=== PATIENT | female | born 1980 | race Caucasian/White ===

== ENCOUNTER 2017-06-18 10:18 | Emergency (ER) | payer OTHER, BC ==
[2017-06-18 12:02] LABS: BEDSIDE GLUCOSE 157 MG/DL (70-105)
[2017-06-18 12:29] LABS: BEDSIDE GLUCOSE 169 MG/DL (70-105)
== END 2017-06-18 12:10 | disposition home or self-care (01) ==
LOC: M ED 10:18
DX: Z04.1 Encounter for examination and observation following transport accident (principal); R55 Syncope and collapse; E10.649 Type 1 diabetes mellitus with hypoglycemia without coma; F17.210 Nicotine dependence, cigarettes, uncomplicated; Z79.899 Other long term (current) drug therapy
CPT/HCPCS: 99284

== ENCOUNTER 2019-07-20 16:54 | Emergency (ER) | payer OTHER ==
[~2019-07-20] VITALS: Ht 154.9 cm; Wt 86.4 kg
[~2019-07-20 16:54] MED LIST: ATOR40TA75; CLON0.5T2; INSUH10VL; INSUNSD; SUBO8MIS; TRAZ-252; VALA500T5; VENL75CA47; VENTAER
[2019-07-20 17:06] VITALS: BP 151/65
== END 2019-07-20 19:37 | disposition left against medical advice (07) ==
LOC: M ED 16:54
DX: E11.649 Type 2 diabetes mellitus with hypoglycemia without coma (principal); R55 Syncope and collapse; Z53.21 Procedure and treatment not carried out due to patient leaving prior to being seen by health care provider; I10 Essential (primary) hypertension; F17.200 Nicotine dependence, unspecified, uncomplicated; Z79.4 Long term (current) use of insulin; Z79.899 Other long term (current) drug therapy

== ENCOUNTER 2019-11-28 16:29 | Inpatient (IN) | payer OTHER ==
[~2019-11-28] VITALS: Ht 154.9 cm; Wt 78.9 kg
[~2019-11-28 16:29] MED LIST changes: -CLON0.5T2; +CLON0.5T2 PO; -INSUNSD; +INSUNSD SC; -SUBO8MIS; +SUBO8MIS SL; -VENTAER; +VENTAER PO
[2019-11-28] MEDS ORDERED: NALOXONE 2MG/2ML SYRINGE (J2310 PER 1MG) IM STA (16:39)
[2019-11-28] MEDS ORDERED: NS 1,000 ML IV ONE ×2 (16:45→22:30)
[2019-11-28] MEDS ORDERED: MIDAZOLAM 5MG/ML 1ML VIAL (J2250 PER 1MG) IM ONE ×2 (17:00→18:00)
[2019-11-28] MEDS ORDERED: HALOPERIDOL 5MG/ML VIAL (J1630 PER 1) IM ONE (17:15)
[2019-11-28] MEDS ORDERED: MIDAZOLAM INJ 2MG/2ML VIAL (J2250 PER 1MG) IV STA (17:33)
[2019-11-28] MEDS ORDERED: diazePAM 10MG/2ML SYRINGE (J3360 PER 5MG) IM ONE ×2 (18:00→18:15)
[2019-11-28 18:16] LABS: AMPHETAMINES LEVEL URINE NEGATIVE (NEGATIVE); BARBITURATES URINE NEGATIVE (NEGATIVE); BENZODIAZEPINES URINE NEGATIVE (NEGATIVE); CANNABINOIDS URINE NEGATIVE (NEGATIVE); COCAINE METABOLITE URINE NEGATIVE (NEGATIVE); METHADONE URINE NEGATIVE (NEGATIVE); OPIATES URINE NEGATIVE (NEGATIVE); PHENCYCLIDINE URINE NEGATIVE (NEGATIVE)
[2019-11-28 18:37] LABS: ACETAMINOPHEN LEVEL < 2.0 UG/ML (10.0-30.0); ETHYL ALCOHOL (ETHANOL) < 0.003 % (0.000-0.010); SALICYLATE LEVEL 3.7 MG/DL (5.0-30.0)
[2019-11-28] MEDS ORDERED: PROPOFOL 1,000 MG/100 ML VIAL As Ordered ONE (18:43)
[2019-11-28] MEDS ORDERED: propofoL 1,000 MG in IV 1 EA IV SCH (18:45)
[2019-11-28] MEDS ORDERED: ROCURONIUM BROMIDE 50 MG/5 ML VIAL IV STA (18:45)
[2019-11-28] MEDS ORDERED: ETOMIDATE INJ 20MG/10ML VIAL IV STA (18:45)
[2019-11-28 19:25] LABS: BASO # 0.1 10^3/uL (0.0-0.2); BASO % 0.4 % (0.0-1.0); HEMATOCRIT 46.2 % (36.0-47.0); HEMOGLOBIN 13.1 g/dl (12.0-15.5); LYMPH % 14.8 % (24.0-44.0); MEAN CORPUSCULAR HEMOGLOBIN 29.4 pg (27.0-33.0); MEAN CORPUSCULAR HGB CONC 28.4 g/dl (32.0-36.5); MEAN CORPUSCULAR VOLUME 103.6 fl (80.0-96.0); MONO # 2.3 10^3/uL (0.0-0.8); MONO % 6.9 % (0.0-5.0); NEUTROPHILS # 25.9 10^3/uL (1.5-8.5); NEUTROPHILS % 76.3 % (36.0-66.0); PLATELET COUNT, AUTOMATED 349 10^3/uL (150-450); RED BLOOD COUNT 4.46 10^6/uL (4.00-5.40)
[2019-11-28] MEDS ORDERED: SODIUM BICARBONATE 8.4% INJ 50 ML SYRINGE IV STA ×2 (19:25→22:05)
[2019-11-28] MEDS ORDERED: REFRIGERATOR IV KEYS XX PRN (19:30)
[2019-11-28] MEDS ORDERED: fentaNYL 100 MCG/2 ML INJECTION (J3010) IV PRN (19:30)
[2019-11-28] MEDS ORDERED: HumuLIN R (REGULAR) INSULIN (NovoLIN R) **100U/ML** PER UNIT IV SCH (19:45)
[2019-11-28] MEDS ORDERED: SODIUM CHLORIDE 0.9% 1000ML IV SCH (19:45)
[2019-11-28] MEDS: propofoL 1,000 MG in IV 1 EA IV SCH (19:50)
[2019-11-28] MEDS ORDERED: MIDAZOLAM HCL 100 MG in D5W 80 ML IV SCH (20:00)
[2019-11-28] MEDS ORDERED: PIPERACILLIN/TAZOBACTAM SOD 2.25 GM in D5W MINI-BAG PLUS 50 ML IV ONE (20:00)
--- NOTE | 2019-11-28 20:18 | REP ---
Clinical: Status post intubation. Comparison: 12/07/2006. Findings: Evaluation is limited by underpenetration and the exact position of the endotracheal tube in relation to the alta is difficult to evaluate although it appears to be approaching the right mainstem bronchus and follow up may be warranted. Nasogastric tube courses below left hemidiaphragm in satisfactory position. Left IJ line with tip in the SVC. Cardiac silhouette is normal. Lung south demonstrate coarsened parenchymal markings without focal consolidation, effusion, or pneumothorax. Skeletal structures are intact. Impression: 1. Poor evaluation of the endotracheal tube in relation to the alta due to positioning and underpenetration. Reevaluation may be warranted. 2. Coarsened parenchymal markings may reflect chronic reactive airway disease. No focal consolidation or effusion. Electronically Signed by Logan Francois MD 11/28/2019 08:09 P
--- NOTE | 2019-11-28 20:20 | REP ---
Clinical: Status post intubation. Comparison: 11/28/1927 07:07 p.m.. Findings: The endotracheal tube is identified at the alta and repositioning is suggested. Nasogastric tube in satisfactory position. Left IJ line with tip in the SVC. Cardiac silhouette is normal. Diffusely coarsened parenchymal markings suggests chronic reactive airway disease and possible early left lower lobe infiltrate. No effusion. No pneumothorax. Impression: 1. Endotracheal tube appears to approach the alta and may warrant reevaluation/repositioning. 2. Diffusely coarsened parenchymal markings suggest chronic reactive airway disease with possible early left lower lobe infiltrate. Electronically Signed by Logan Francois MD 11/28/2019 08:11 P
[2019-11-28] MEDS ORDERED: CLON0.5T2 PO (20:38)
[2019-11-28] MEDS ORDERED: TRAZ1TAB14 PO (20:38)
[2019-11-28] MEDS ORDERED: VENL150C43 PO (20:38)
[2019-11-28] MEDS ORDERED: INSUNSD SC (20:38)
[2019-11-28] MEDS ORDERED: ADME100I SC (20:38)
[2019-11-28] MEDS ORDERED: COMMENTS (20:39)
[2019-11-28] MEDS: CHLORHEXIDINE GLUCONATE 0.12 % 15ML UDC (PERIDEX ORAL RINSE) MT SCH (21:00)
[2019-11-28 21:03] LABS: TROPONIN I 0.04 NG/ML (< 0.10)
[2019-11-28] MEDS: NS 1,000 ML IV SCH (21:45)
--- NOTE | 2019-11-28 21:48 | RO ---
DATE OF PROCEDURE: 11/28/2019 INTERNAL JUGULAR CENTRAL LINE PROCEDURE NOTE INDICATION: Venous access. PREPROCEDURE DIAGNOSIS: Altered mental status and diabetic ketoacidosis (DKA). POSTPROCEDURE DIAGNOSIS: Altered mental status and diabetic ketoacidosis. PROCEDURE: Central Line Insertion and Intra-osseous line placement SURGEON/ATTENDING PHYSICIAN: Dr. Iwona Moran CONSENT: Due to the emergent nature of the procedure, the consent was implied. DESCRIPTION OF PROCEDURE: Multiple attempts at peripheral IV placement were made by ED nursing staff and physician which without success. The left tibial region was prepped in usual fashion and 1% lidocaine was administered for local anesthesia. The left tibial region was cannulated with 15 ga IO angiocath. There was bone marrow and blood aspirated after placement and line was flushed properly with placement of IO dressing after. Central line insertion practice form was completed by independent observed. Full sterile technique was maintained throughout the procedure, including surgical cap, mask, protective eyewear, full gown and sterile gloves. The patient was placed in Trendelenburg position. The left neck region was prepped using chlorhexidine scrub and draped in a sterile fashion using a full drape and a sterile probe cover employed. The left internal jugular vein was identified using ultrasound. Anesthesia was achieved over the vein using 1% lidocaine. Using real-time out of plane guidance, the introducer was inserted into the internal jugular vein under direct ultrasound visualization. Venous blood was drawn. The syringe was removed, and the guidewire was advanced into the introducer needle. The needle was removed over the guidewire. A small incision was made at the skin surface with scalpel, and dilator was exchanged over the guidewire. After appropriate dilation was obtained, the dilator was changed over the wire for a triple lumen central venous catheter. The wire was removed, and the catheter was sutured in place at 19 cm. A sterile chlorhexidine-impregnated dressing was placed over the catheter at the insertion site. The patient tolerated the procedure without any hemodynamic compromise. At time of procedure completion, all ports aspirated and flushed properly. Postprocedure chest x-ray is pending. Estimated blood loss is less than 2 mL. MTDD
[2019-11-28 21:51] LABS: ABG BASE EXCESS -24.3 (-2.0-2.0); ABG HCO3 6.2 MEQ/L (22.0-26.0); ABG O2 SATURATION 89.1 % (95.0-99.0); ABG PARTIAL PRESSURE O2 68.4 mmHg (75.0-100.0); ABG STANDARD HCO3 7.4 MEQ/L (22.0-26.0)
--- NOTE | 2019-11-28 21:53 | RO ---
DATE OF PROCEDURE: 11/28/2019 ENDOTRACHEAL INTUBATION PROCEDURE NOTE INDICATION: Altered mental status with severe agitation and combativeness. PREPROCEDURE DIAGNOSIS: Presumed diabetic ketoacidosis (DKA). POSTPROCEDURE DIAGNOSIS: PROCEDURE: Endotracheal intubation SURGEON/ATTENDING PHYSICIAN: Dr. Iwona Moran CONSENT: Due to the emergent nature of the procedure, consent was implied. DESCRIPTION OF PROCEDURE: Prior to endotracheal intubation, the patient did not have any IV access. A left tibial interosseous (IO) was placed for access. There was good return from the interosseous line. The patient was immediately given a bolus of normal saline, and this access was used for her medications for intubation. Prior to this, patient had already received intramuscular (IM) Versed 10 mg total, 5 mg IM Haldol, and 20 mg total of Valium IM. She was in four-point restraints and continued to require multiple emergency department (ED) staff to physically restrain her due to her combativeness and agitation. The patient was placed on a dry room operator including continuous pulse oximetry. Rapid sequence intubation was conducted. The patient received 30 mg of etomidate for induction and 80 mg of rocuronium for adequate paralysis. Using a size 3 GlideScope with a size 7.5 endotracheal tube with stylet, the patient was intubated on the first pass attempt. The stylet was removed, and the balloon cuff was inflated. During intubation, the patient was noted to have some coffee-ground emesis, which was suctioned easily. Appropriate endotracheal tube position was confirmed by direct visualization, vocal cord passage, fogging of the tube, CO2 colorimetric indicator and symmetric breath sounds. Tube was secured at 24 cm at the lips. An OGT was placed after intubation to suction. Post intubation chest x-ray is pending. [facility]
[2019-11-28 21:55] LABS: ABG pH (ARTERIAL) 6.977 UNITS (7.350-7.450)
[2019-11-28 21:57] LABS: ACETONE/KETONE > 46.00 MG/DL (<2.81); ALBUMIN 2.6 GM/DL (3.2-5.2); ALT/SGPT 41 U/L (12-78); BILIRUBIN,TOTAL 0.8 MG/DL (0.2-1.0); BLOOD UREA NITROGEN 53 MG/DL (7-18); CALCIUM LEVEL 6.9 MG/DL (8.5-10.1); CARBON DIOXIDE LEVEL 10 MEQ/L (21-32); CHLORIDE LEVEL 93 MEQ/L (98-107); CHOLESTEROL LEVEL 152 MG/DL (< 200); CPK CREATINE PHOSPHOKINASE 203 U/L (26-192); CREATININE FOR GFR 2.96 MG/DL (0.55-1.30); GLOMERULAR FILTRATION RATE 18.7 (>58); LDH LACTATE DEHYDROGENASE 320 U/L (84-246); PHOSPHORUS LEVEL 8.7 MG/DL (2.5-4.9); SODIUM LEVEL 128 MEQ/L (136-145); TOTAL PROTEIN 5.2 GM/DL (6.4-8.2); TRIGLYCERIDES LEVEL 217 MG/DL (<150)
[2019-11-28 22:00] LABS: GLUCOSE, FASTING 1213 MG/DL (70-100)
--- NOTE | 2019-11-28 22:25 | HPE ---
DATE OF ADMISSION: 11/28/2019 History was obtained from the chart and other collateral information as patient is agitated and altered and unable to provide a history. The patient is a 39-year-old female with a past medical history of reported type 1 diabetes, alcohol abuse, who was brought to the emergency department (ED) by emergency medical services (EMS) after patient's boyfriend reportedly was unable to reach her in the afternoon. He had stated to EMS that she was in her usual state of health earlier this morning when he saw her. Upon EMS arrival, the patient was noted to be altered, as well as combative. Her fingerstick blood glucose on home monitor was elevated. In the ED, the patient was severely combative and agitated. She had required four-point restraints as well as physical restraints by the ED staff in attendance to get IV access as well as labs. The patient was given intramuscular (IM) naltrexone initially for concern of possible overdose. She did not have any response with the Narcan. She was then given Versed 5 mg IM times two, as well as Haldol 5 mg IM times one with no improvement in her agitation. She was then given Valium 10 mg IM times two for sedation in attempt to get venous access. The patient was still combative and central venous access was not able to be performed. The patient, therefore, had a left tibial interosseous access placed. There was good return, and she was given 1 liter normal saline bolus as well as medications for rapid sequence induction for emergent intubation. Post intubation, the patient had placements then of a left internal jugular (IJ) triple lumen central line for venous access. We were able to get blood work done at that point as well as a point care ABG, which did show severe acidosis. She also continued to have elevated fingerstick glucose checks, and there was concern for DKA given her history of type 1 diabetes. The patient was given 1 ampule of bicarbonate and additional IV fluids. PAST MEDICAL AND SURGICAL HISTORY: Type 1 diabetes. Previous history of alcohol abuse. Appendectomy. Hyperlipidemia. Anxiety. SOCIAL HISTORY: Unable to be obtained as the patient is altered and unable to provide history. FAMILY HISTORY: Unable to be obtained. HOME MEDICATIONS: As per previous documentation: Albuterol, venlafaxine, Suboxone, insulin, clonazepam, trazodone, atorvastatin, valacyclovir. ALLERGIES: No known drug allergies. PHYSICAL EXAM: Temperature 96.8, pulse 122, respirations 26, blood pressure 137/68, oxygen saturation (O2 sat) 100% on room air. General: The patient is lying in the stretcher in four-point restraints and is not oriented to person, place or time. She is intermittently yelling and asking for various things but is not making sense. She is agitated and combative. She is not following commands appropriately and is not redirectable. HEENT: Normocephalic, atraumatic. Pupils are reactive to light bilaterally. There is dry mucous membranes noted. Neck is supple. Trachea is midline. Unable to palpate any cervical adenopathy. Cardiovascular: Tachycardic, regular rate and rhythm. Unable to appreciate any murmurs. Pulmonary: Patient is tachypneic and appears to be using some respiratory accessory muscles. There is no wheezing, rales or rhonchi noted. Abdomen is soft, nontender, nondistended. I am unable to palpate any organomegaly. Extremities: There is no lower extremity edema noted in the bilateral lower extremities. There is some scabbing and bruises noted in her lower extremities and in her arms. Some of the scabs on the arms appear as possible track bruner. LABORATORY DATA: WBC 34.0, hemoglobin 13.1, platelets are 349. Point of care chemistry: Sodium 121, potassium 6.2, chloride 93, bicarb is 9, BUN 52, creatinine is 2.5, glucose is greater than 700, lactate is 4.13. Urine toxicology was negative. The alcohol level is negative. Salicylate and acetaminophen is negative. Point of care ABG: pH 6.928, pCO2 of 26.5, pO2 of 87. IMAGING STUDIES: Chest x-ray: Post intubation and central line placement shows the endotracheal (ET) tube approximately 2 cm above the alta. There is a left IJ in place with the tip in the expected position in superior vena cava (SVC). There is an orogastric (OG) tube in place coursing below the diaphragm. ET tube was adjusted and pulled back approximately 1 cm and repeat x-ray shows the ET tube tip right at the bottom of the heads of the clavicle. In the lung south, there is no focal opacities or infiltrates noted. Possible atelectasis in the left base. ASSESSMENT AND PLAN: Ms. Shaffer is a 39-year-old female with a past medical history of type 1 diabetes, alcohol abuse, hyperlipidemia, anxiety, who presented with complaints of altered mental status. The patient was severely agitated and combative in the ED and had required four-point restraints as well as physical restraints in an attempt to get blood work as well as venous access. The patient was given multiple IM medications for sedation with minimal effect. The patient was therefore emergently intubated and sedated due to her severe combativeness as well as for suspicion of a severe metabolic acidosis secondary to DKA given her elevated fingerstick and history. After the patient was intubated and sedated, she was able to have a left IJ triple lumen in place. Neurologic: Patient is encephalopathic, likely metabolic encephalopathy in the setting of DKA and her severe metabolic acidosis. There is also a possibility of encephalopathy secondary to ingestion given the patient's history. Although her U tox was negative, she does have other medications at home, including antidepressants. There is also a possibility of altered mental status secondary to sepsis given her leukocytosis. - The patient has a head CT ordered by the ED, which is pending. - While the patient is intubated, will continue with propofol for sedation with a Versed drip as well as fentanyl as needed for analgesia. Cardiac: The patient has no known cardiac history. She was tachycardic in the ED, likely secondary to hypovolemia from her DKA, as well as possibility of sepsis. She did have elevated lactic acid on admission as well, which may be due to severe dehydration as well as possible sepsis. - She was ordered for 2 liter normal saline boluses and continued with normal saline at 250 mL an hour for IV fluid hydration. Will continue to trend lactic acid Pulmonary: The patient was intubated and placed on mechanical ventilation given her altered mental status and severe agitation as well as due to her severe metabolic acidosis. - The patient will be on PRVC with settings of 420/26/30 and 5. Will continue adjusting the patient's respiratory rate as her acidosis improves but for now, we do need a high minute ventilation for respiratory compensation for her severe metabolic acidosis a - Will continue daily ABGs and chest x-rays while intubated. - Will continue vent bundle care with head elevation and chlorhexidine mouthwash. Infectious disease: Patient with elevated leukocytosis on admission. May be hemoconcentration; however, with her DKA, there is concern for possible sepsis contributing. Will start her on broad-spectrum antibiotics with Zosyn and check a methicillin-resistant Staphylococcus aureus (MRSA) screen. - Will check a UA with reflex urine culture as well as blood cultures. Her initial chest x-ray did not show any focal opacities. The patient did have some coffee-ground emesis and noted significantly in her OG tube after intubation and there may be a consideration for possible aspiration pneumonia developing. Endocrine/Renal: History of type 1 diabetes, now with DKA with severe metabolic acidosis, as well as likely acute renal failure. The patient's hyponatremia is pseudohyponatremia from her elevated glucose and her hyperkalemia is also in the setting of her severe acidosis. - The patient is status post 1 ampule of bicarbonate. Patient will be on IV fluids at 250 mL an hour of normal saline with adjustments depending on her chemistry. - Patient will be started on DKA protocol with insulin bolus and then an insulin drip with fingerstick glucose every 1 hour. - Will continue to monitor her renal function, electrolytes with BMP every 4 hours and replete as needed - will repeat ABG and may require additional bicarbonate depending on pH and her metabolic acidosis - Will continue to monitor ins and outs via [place]. Gastrointestinal (GI): The patient had OG tube placed with significant coffee-ground emesis output. - Will start her on proton pump inhibitor (PPI) twice a day and continue OG tube to low intermittent suction. - The patient is nothing by mouth while in DKA. Deep vein thrombosis (DVT) prophylaxis: Thromboembolism deterrents (TEDs) and sequential compression device (SCDs). GI prophylaxis: Pantoprazole CODE STATUS: Full Code. Total critical care time spent not including procedures: Approximately 2 hours. MTDD
--- NOTE | 2019-11-28 22:40 | REPVR ---
PROCEDURE INFORMATION: Exam: CT Head Without Contrast Exam date and time: 11/28/2019 10:16 PM Age: 39 years old Clinical indication: Pain; Headache; Additional info: Altered mental status TECHNIQUE: Imaging protocol: Computed tomography of the head without contrast. Radiation optimization: All CT scans at this facility use at least one of these dose optimization techniques: automated exposure control; mA and/or kV adjustment per patient size (includes targeted exams where dose is matched to clinical indication); or iterative reconstruction. COMPARISON: No relevant prior studies available. FINDINGS: Brain: There is no evidence for an acute large vessel territorial infarct, intracranial hemorrhage, mass, mass effect, midline shift, or herniation. The cortical gyration pattern, basal ganglia, thalami, and cerebellum are normal in appearance. Ventricles: Normal. No hydrocephalus. Bones/joints: The skull is intact. No suspicious osteolytic or osteoblastic lesion. Sinuses: There is an 18 mm mucous retention cyst in the base of the left maxillary sinus. There is mild opacification of the left ethmoid sinus. No air-fluid levels are noted in the sinuses. The maxillary sinuses were not fully imaged. Mastoid air cells: Clear. Orbits: The globes and orbits are intact and normal. Soft tissues: Unremarkable. No soft tissue fluid collection. IMPRESSION: No acute intracranial abnormality. Electronically signed by: Leander Villegas On 11/28/2019 22:40:05 PM
[2019-11-28] MEDS ORDERED: SODIUM BICARBONATE 150 MEQ in STERILE WATER LITER BAG 1,000 ML IV SCH (23:00)
[2019-11-28 23:04] VITALS: BP 90/55
[2019-11-28 23:06] VITALS: BP 83/50
[2019-11-28] MEDS: PANTOPRAZOLE 40MG VIAL (C9113 PER 1) IV SCH (23:10)
[2019-11-28 23:18] VITALS: BP 84/47
[2019-11-28 23:20] VITALS: BP 84/48
[2019-11-28] MEDS: INSULIN REGULAR IN 0.9 % NACL 100 UNIT in IV 1 EA IV SCH ×2 (23:25)
[2019-11-28 23:37] VITALS: BP 87/51
[2019-11-28 23:40] VITALS: BP 93/49
[2019-11-29] VITALS (44 sets, daily range): BP systolic 86–129; BP diastolic 50–81
[2019-11-29] MEDS: NS 1,000 ML IV SCH ×2 (00:09→05:45)
[2019-11-29 01:21] LABS: VENOUS BASE EXCESS -16.3 (-2.0-2.0); VENOUS HCO3 9.4 MEQ/L (23.0-27.0); VENOUS O2 SATURATION 94.4 % (60.0-80.0); VENOUS PARTIAL PRESSURE CO2 22.8 mmHg (38.0-50.0); VENOUS PH 7.233 UNITS (7.330-7.430); VENOUS STANDARD HCO3 12.1 MEQ/L; VENOUS TOTAL CO2 10.1 MEQ/L (24.0-28.0)
[2019-11-29] MEDS: PIPERACILLIN/TAZOBACTAM SOD 2.25 GM in D5W MINI-BAG PLUS 50 ML IV SCH ×4 (02:02→20:22)
[2019-11-29] MEDS: propofoL 1,000 MG in IV 1 EA IV SCH ×6 (02:02→22:41)
[2019-11-29 03:35] LABS: CALCIUM LEVEL 6.6 MG/DL (8.5-10.1); CREATININE FOR GFR 2.86 MG/DL (0.55-1.30); GLOMERULAR FILTRATION RATE 19.4 (>58); POTASSIUM SERUM 3.4 MEQ/L (3.5-5.1)
[2019-11-29] MEDS: INSULIN REGULAR IN 0.9 % NACL 100 UNIT in IV 1 EA IV SCH ×4 (05:41→19:05)
[2019-11-29 05:43] LABS: ABG BASE EXCESS -5.7 (-2.0-2.0); ABG HCO3 16.1 MEQ/L (22.0-26.0); ABG O2 SATURATION 97.4 % (95.0-99.0); ABG PARTIAL PRESSURE CO2 22.5 mmHg (35.0-45.0); ABG PARTIAL PRESSURE O2 81.1 mmHg (75.0-100.0); ABG STANDARD HCO3 19.8 MEQ/L (22.0-26.0); ABG TOTAL CO2 16.8 MEQ/L (22.0-29.0); ABG pH (ARTERIAL) 7.473 UNITS (7.350-7.450)
[2019-11-29 05:46] LABS: BASO % 0.2 % (0.0-1.0); HEMATOCRIT 32.5 % (36.0-47.0); HEMOGLOBIN 11.6 g/dl (12.0-15.5); LYMPH # 2.6 10^3/uL (1.5-5.0); LYMPH % 13.6 % (24.0-44.0); MEAN CORPUSCULAR HEMOGLOBIN 29.7 pg (27.0-33.0); MEAN CORPUSCULAR HGB CONC 35.7 g/dl (32.0-36.5); MEAN CORPUSCULAR VOLUME 83.1 fl (80.0-96.0); MONO # 1.2 10^3/uL (0.0-0.8); NEUTROPHILS # 15.3 10^3/uL (1.5-8.5); NEUTROPHILS % 79.3 % (36.0-66.0); RED BLOOD COUNT 3.91 10^6/uL (4.00-5.40); WHITE BLOOD COUNT 19.3 10^3/uL (4.0-10.0)
[2019-11-29 05:57] LABS: PLATELET COUNT, AUTOMATED 191 10^3/uL (150-450)
[2019-11-29 06:24] LABS: ALBUMIN 2.4 GM/DL (3.2-5.2); BILIRUBIN,TOTAL 0.4 MG/DL (0.2-1.0); CALCIUM LEVEL 6.8 MG/DL (8.5-10.1); CREATININE FOR GFR 2.66 MG/DL (0.55-1.30); GLOMERULAR FILTRATION RATE 21.1 (>58); MAGNESIUM LEVEL 2.1 MG/DL (1.8-2.4); PHOSPHORUS LEVEL 0.6 MG/DL (2.5-4.9); POTASSIUM SERUM 3.3 MEQ/L (3.5-5.1); TOTAL PROTEIN 4.7 GM/DL (6.4-8.2)
[2019-11-29] MEDS ORDERED: KCL 20MEQ IN 0.45NS 1000ML 1,000 ML IV SCH (06:45)
[2019-11-29] MEDS ORDERED: KCL 10MEQ/100ML SWI (KRUN) 10 MEQ in IV 1 EA IV ONE (07:00)
[2019-11-29] MEDS ORDERED: KCL 20MEQ IN 100ML SWI (KRUN) 20 MEQ in IV 1 EA IV ONE ×2 (08:00)
[2019-11-29] MEDS ORDERED: GLUCOSE 4GM CHEW TABLET PO PRN (08:00)
[2019-11-29] MEDS ORDERED: GLUCAGON INJ 1MG VIAL SC PRN (08:00)
[2019-11-29] MEDS ORDERED: DEXTROSE 50% 50 ML SYRINGE IV PRN (08:00)
[2019-11-29] MEDS: CHLORHEXIDINE GLUCONATE 0.12 % 15ML UDC (PERIDEX ORAL RINSE) MT SCH ×2 (08:20→20:23)
[2019-11-29] MEDS: PANTOPRAZOLE 40MG VIAL (C9113 PER 1) IV SCH ×2 (08:20→20:22)
--- NOTE | 2019-11-29 08:27 | REP ---
Clinical: Status post intubation. Comparison: 11/28/1927 06:47 p.m. Findings: Endotracheal tube 2 cm above the alta. Left IJ line with tip in the SVC. Nasogastric tube in satisfactory position. Mediastinum and cardiac silhouette are within normal limits. Subtle bibasilar atelectasis cannot be excluded. No discrete focal consolidation, effusion, or pneumothorax. Skeletal structures intact. Impression: 1. Lines and tubes as described above including ETT 2 cm above the alta 2. Cannot exclude subtle basilar atelectasis . Electronically Signed by Logan Francois MD 11/29/2019 08:19 A
[2019-11-29] MEDS ORDERED: PANTOPRAZOLE 40MG VIAL (C9113 PER 1) IV SCH (09:00)
[2019-11-29 09:11] LABS: ABG BASE EXCESS -2.7 (-2.0-2.0); ABG HCO3 19.2 MEQ/L (22.0-26.0); ABG O2 SATURATION 97.5 % (95.0-99.0); ABG PARTIAL PRESSURE CO2 25.8 mmHg (35.0-45.0); ABG PARTIAL PRESSURE O2 82.6 mmHg (75.0-100.0); ABG STANDARD HCO3 22.2 MEQ/L (22.0-26.0)
[2019-11-29] MEDS: INSULIN IV RATE CHANGE DOCUMENTATION ML/HR XX SCH ×11 (09:19→23:02)
[2019-11-29] MEDS ORDERED: SODIUM CHLORIDE 0.9% 1000ML IV ONE (10:00)
[2019-11-29 10:04] LABS: CREATININE FOR GFR 2.43 MG/DL (0.55-1.30); GLOMERULAR FILTRATION RATE 23.5 (>58); POTASSIUM SERUM 3.7 MEQ/L (3.5-5.1)
--- NOTE | 2019-11-29 10:06 | CCN ---
DATE OF VISIT: 11/29/2019 START TIME: 0840. STOP TIME: 914. I attended Sena Shaffer here in the intensive care unit. The patient has been examined and chart reviewed. I have spoken at length with the nurse at the bedside. She remains intubated, sedated, mechanically ventilated, and she has required significant doses of both propofol and Versed. She still opens her eyes to voice. Nursing received a call from her mother, who reports that the patient has been experimenting with all types of street drugs but does not know which types other than maybe cocaine and jorje. Maximum temperature (Tmax) overnight 98.9, blood pressure 86 to the low 100s, heart rate 107-130, respiratory rate generally in the 20s. Intake and output (I and O): Have not been accurately recorded. She is off the bicarbonate drip. MOST RECENT LABORATORY: White blood cell count of 19.3, hemoglobin 11.6, platelet count 191,000, 79% segmented neutrophils, no bands. Sodium 142, potassium of 3.3, chloride 108, CO2 of 18, BUN 50, creatinine 2.66, phosphorus is 0.6, last glucose 517, albumin 2.4. Blood gas done this morning at 0526 has a pH of 7.473, PCO2 of 22.5, pO2 of 81.1, saturation 97.4%. Repeat gas just drawn. Chest x-ray shows lines and tubes in good position. There is some mild haziness throughout. On examination, she is sedate. Pupils do react. Sclerae clear. Trachea is in the midline. HEENT: Is otherwise generally normocephalic, atraumatic. Pupils do react. Trachea is in the midline. Chest shows some fine dependent crackles that improve with deep inspiration. No other focal adventitious breath sounds are identified. Expansion although diminished is symmetric. Cardiovascular examination: Is tachycardic but regular. Peripheral pulses are palpable. No obvious edema. Abdomen: Soft, nontender, with active bowel sounds. No convincing organomegaly or masses. Extremities show multiple areas that are consistent with track bruner and superficial excoriations. Neurologically, she is sedate but does move all extremities. Blood culture is pending at the time of this dictation. The most pressing problems requiring my immediate presence at the bedside: 1. Respiratory alkalosis. 2. Diabetic ketoacidosis (DKA). 3. Respiratory failure requiring mechanical ventilatory support. 4. Severely altered mental status. Suspect toxic ingestion. 5. Reported history of drug abuse. At this point, we will replete her potassium, as well as her phosphorus. She remains on the insulin drip. She is off the bicarbonate drip. Her mental status yesterday certainly upon presentation was most consistent with some other hallucinogenic but does not show on her toxicology screen. Her mother's history is quite useful. We will try to slowly wean her sedation as able as safety is paramount. Ventilator changes will be made in hopes of facilitating some type of ventilator weaning, hopefully in the near future. If she is not able to be extubated by tomorrow, then we will consider adding enteral feeds, keeping her current glucoses in mind. Ulcer and deep venous thrombosis (DVT) prophylaxes are in place. However, at this point, she remains quite critically ill. Her prognosis remains guarded at best, especially in view of the above. Will proceed as outlined above. I left the bedside at 0915 hours. A total of 45 minutes of critical care time delivered at the bedside, not including procedures.
[2019-11-29] MEDS ORDERED: D5W/0.45% SODIUM CHLORIDE 1,000 ML IV SCH (10:30)
--- NOTE | 2019-11-29 10:43 | ECGEPIP ---
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
[2019-11-29] MEDS: POTASSIUM PHOSPHATE INJ 30 MMOL in D5W 500 ML IV SCH ×3 (10:57→21:31)
[2019-11-29] MEDS: KCL 20MEQ IN D5/0.45NS 1000ML 1,000 ML IV SCH ×3 (10:57→20:23)
[2019-11-29 11:15] LABS: ABG BASE EXCESS -2.3 (-2.0-2.0); ABG HCO3 20.7 MEQ/L (22.0-26.0); ABG O2 SATURATION 98.1 % (95.0-99.0); ABG PARTIAL PRESSURE O2 99.9 mmHg (75.0-100.0); ABG STANDARD HCO3 22.5 MEQ/L (22.0-26.0); ABG TOTAL CO2 21.6 MEQ/L (22.0-29.0); ABG pH (ARTERIAL) 7.456 UNITS (7.350-7.450)
[2019-11-29] MEDS: MIDAZOLAM INJ 2MG/2ML VIAL (J2250 PER 1MG) IV PRN ×2 (12:26→15:43)
[2019-11-29 13:39] LABS: CALCIUM LEVEL 6.7 MG/DL (8.5-10.1); CREATININE FOR GFR 2.16 MG/DL (0.55-1.30); GLOMERULAR FILTRATION RATE 26.9 (>58); POTASSIUM SERUM 3.8 MEQ/L (3.5-5.1)
[2019-11-29 17:48] LABS: CALCIUM LEVEL 6.6 MG/DL (8.5-10.1); CREATININE FOR GFR 1.95 MG/DL (0.55-1.30); GLOMERULAR FILTRATION RATE 30.2 (>58); POTASSIUM SERUM 3.9 MEQ/L (3.5-5.1)
[2019-11-29] MEDS ORDERED: ACETAMINOPHEN 325 MG/10.15 ML UDC GT PRN (19:00)
[2019-11-29 22:06] LABS: CALCIUM LEVEL 6.6 MG/DL (8.5-10.1); CREATININE FOR GFR 1.76 MG/DL (0.55-1.30)
[2019-11-30] VITALS (9 sets, daily range): BP systolic 114–123; BP diastolic 80–86
[2019-11-30] MEDS: INSULIN IV RATE CHANGE DOCUMENTATION ML/HR XX SCH ×10 (00:01→11:00)
[2019-11-30] MEDS: KCL 20MEQ IN D5/0.45NS 1000ML 1,000 ML IV SCH ×3 (01:19→11:41)
[2019-11-30] MEDS: PIPERACILLIN/TAZOBACTAM SOD 2.25 GM in D5W MINI-BAG PLUS 50 ML IV SCH ×2 (01:19→08:16)
[2019-11-30 01:39] LABS: CALCIUM LEVEL 6.5 MG/DL (8.5-10.1); CREATININE FOR GFR 1.58 MG/DL (0.55-1.30); GLOMERULAR FILTRATION RATE 38.6 (>58); POTASSIUM SERUM 4.1 MEQ/L (3.5-5.1)
[2019-11-30] MEDS: propofoL 1,000 MG in IV 1 EA IV SCH ×3 (01:56→10:05)
[2019-11-30 04:12] LABS: BASO % 0.2 % (0.0-1.0); EOS % 0.4 % (0.0-3.0); HEMATOCRIT 30.7 % (36.0-47.0); HEMOGLOBIN 10.6 g/dl (12.0-15.5); LYMPH # 2.3 10^3/uL (1.5-5.0); LYMPH % 20.9 % (24.0-44.0); MEAN CORPUSCULAR HGB CONC 34.5 g/dl (32.0-36.5); MEAN CORPUSCULAR VOLUME 84.1 fl (80.0-96.0); MONO # 0.5 10^3/uL (0.0-0.8); MONO % 4.4 % (0.0-5.0); NEUTROPHILS # 8.2 10^3/uL (1.5-8.5); NEUTROPHILS % 73.7 % (36.0-66.0); PLATELET COUNT, AUTOMATED 131 10^3/uL (150-450); RED BLOOD COUNT 3.65 10^6/uL (4.00-5.40); WHITE BLOOD COUNT 11.1 10^3/uL (4.0-10.0)
[2019-11-30 04:39] LABS: ALBUMIN 2.2 GM/DL (3.2-5.2); BILIRUBIN,TOTAL 0.3 MG/DL (0.2-1.0); CALCIUM LEVEL 6.5 MG/DL (8.5-10.1); CREATININE FOR GFR 1.58 MG/DL (0.55-1.30); GLOMERULAR FILTRATION RATE 38.6 (>58); PHOSPHORUS LEVEL 3.7 MG/DL (2.5-4.9); POTASSIUM SERUM 3.7 MEQ/L (3.5-5.1); TOTAL PROTEIN 4.7 GM/DL (6.4-8.2)
[2019-11-30 05:50] LABS: ABG HCO3 16.1 MEQ/L (22.0-26.0); ABG O2 SATURATION 98.2 % (95.0-99.0); ABG PARTIAL PRESSURE CO2 25.7 mmHg (35.0-45.0); ABG PARTIAL PRESSURE O2 105.3 mmHg (75.0-100.0); ABG STANDARD HCO3 18.8 MEQ/L (22.0-26.0); ABG TOTAL CO2 16.9 MEQ/L (22.0-29.0); ABG pH (ARTERIAL) 7.415 UNITS (7.350-7.450)
--- NOTE | 2019-11-30 08:05 | REP ---
Clinical: Status post intubation. Comparison: 11/29/2019. Findings: Endotracheal tube approximately 11 mm from the alta. Nasogastric tube in satisfactory position. Left IJ line with tip in the SVC. Mediastinum and cardiac silhouette are normal / stable. Subtle left lower lobe air space disease cannot be excluded. No focal consolidation, obvious effusion or pneumothorax. Skeletal structures intact. Impression: 1. Endotracheal tube 11 mm from the alta. 2. Cannot exclude very subtle left lower lobe infiltrate. Electronically Signed by Logan Francois MD 11/30/2019 07:56 A
[2019-11-30] MEDS: PANTOPRAZOLE 40MG VIAL (C9113 PER 1) IV SCH (08:16)
[2019-11-30] MEDS: CHLORHEXIDINE GLUCONATE 0.12 % 15ML UDC (PERIDEX ORAL RINSE) MT SCH (08:16)
--- NOTE | 2019-11-30 10:20 | CCN ---
DATE: 11/30/2019 I again attended Sena Shaffer here in the intensive care unit (ICU). The patient has been examined and the chart reviewed. I spoke at length with the nurse at the bedside. She remains intubated, sedated and mechanically ventilated. We have been able to come down quite significantly on her sedation. Her Versed drip is off. We are weaning her propofol. Maximum temperature (T-max) overnight 99 degrees, blood pressure 114-120s. Heart rate generally in the 90s with a sinus mechanism and respiratory rate of 18 to 22 without accessory muscle use. Input and output midnight to midnight: 7245 mL in with 1800 mL out. She is at 2801 mL in since midnight with 975 mL out. Sodium 139, potassium 3.8, chloride 112, CO2 21, BUN 26, creatinine 1.58, last fingerstick at 173 for her glucose. AST, ALT, 153 and 52 respectively. Albumin 2.2. Repeat phosphorus 3.7. Hemoglobin 9.1, white blood count 10.6, platelet count of 131.000. 73% segmented neutrophils, no bands. Blood gas done on an SIMV of 15, tidal volume of 420, PEEP of 5, pressure support of 15, FiO2 40% shows a pH of 7.415, pCO2 25.7, pO2 105.3. Chest x-ray shows lines and tubes in good position. I do believe a mild infiltrate at the left base is consistent with suspected aspiration. On exam, she is sedate. She does move extremities when stimulated. Pupils do react. Sclerae are clear. Trachea is in the midline. Chest is fairly clear anteriorly. There may be some faint crackles at the bases that improve with larger inspiratory effort. No other focal adventitious sounds are identified. Cardiac exam is regular. Peripheral pulses are mildly diminished but palpable. Abdomen is mildly obese, soft, nontender with active bowel sounds. Extremities again show evidence of previous drug use with some excoriations as well. Neurologically, she is sedate. IMPRESSION: 1. Respiratory failure requiring mechanical ventilatory support secondary to toxic ingestion and diabetic ketoacidosis (DKA). 2. Diabetic ketoacidosis (DKA) secondary to her diabetes mellitus. 3. Aspiration pneumonitis. 4. Suspect toxic/drug ingestion. RECOMMENDATION: At this point, she is tolerating much less in the way of sedation. Her sugars are under reasonable control with the insulin drip and until she is able to be extubated, we will continue with the drip as is. Her IV fluids are being adjusted based on her electrolytes. We will begin enteral feeds. My hope is that she will be able to be extubated in the next 24-48 hours. We will continue her current antimicrobials and specially in view of her presentation. This is day #3 of Zosyn. She remains on ulcer and deep venous thrombosis (DVT) prophylaxis. We will reassess her mental status as her sedation is lightened as reportedly, according to her mother, she has been trying a variety of new street drugs and unfortunately may never know what she actually ingested. Will proceed as outlined above. She is being followed closely. She is certainly at risk for further compromise in view of her situation. Further recommendations will be made in the progress record as new information becomes available.
--- NOTE | 2019-11-30 10:46 | IPN ---
DATE: 11/30/2019 @ 10 a.m. I spoke with the patient's mother, Jennifer Greene, in [facility] area code [phone]. She was updated as to her status. She had appropriate questions and these were answered regarding her status, and hopefully her ability to wean. Plan was outlined to her regarding continuing antibiotics, control her sugars, and hopefully getting her extubated as soon as possible. She wonders about a discharge date and we are certainly unable to pinpoint one for her until we are able to more adequately assess her mental status.
[2019-12-02] MEDS ORDERED: ONDANSETRON 4MG/2ML VIAL ONE (06:35)
[2019-12-02] MEDS ORDERED: HumaLOG INSULIN (NovoLOG) PER UNIT ONE ×5 (06:35→12:35)
[2019-12-02] MEDS ORDERED: PANTOPRAZOLE 40 MG ONE (06:35)
[2019-12-02] MEDS ORDERED: ZOSYN 2.25GM VIAL (J2543) ONE ×3 (06:35→12:35)
[2019-12-02] MEDS ORDERED: ONDANSETRON 4MG/2ML VIAL As Ordered ONE (10:11)
[2019-12-02] MEDS ORDERED: PANTOPRAZOLE 40MG TAB (PROTONIX) ONE (11:01)
[2019-12-02] MEDS ORDERED: AUGMENTIN 875 MG TAB ONE (11:01)
[2019-12-02] MEDS ORDERED: LEVEMIR (INSULIN DETEMIR) 1 UNITS/0.01ML ONE ×2 (11:01→11:08)
[2019-12-02] MEDS ORDERED: ACETAMINOPHEN 325 MG/10.15 ML UDC ONE ×2 (11:08)
[2019-12-02] MEDS ORDERED: HALOPERIDOL 5MG/ML VIAL (J1630 PER 1) ONE (12:35)
[2019-12-02] MEDS ORDERED: LORazepam 2 MG/ML VIAL ONE (12:35)
[2019-12-02] MEDS ORDERED: ZOSYN 2.25GM VIAL (J2543) As Ordered ONE (13:39)
[2019-12-02] MEDS ORDERED: HumaLOG INSULIN (NovoLOG) PER UNIT As Ordered ONE ×3 (13:40→23:02)
[2019-12-02] MEDS ORDERED: ACETAMINOPHEN 325 MG/10.15 ML UDC As Ordered ONE ×2 (14:40→14:41)
[2019-12-02] MEDS ORDERED: AUGMENTIN 875 MG TAB As Ordered ONE (23:01)
[2019-12-02] MEDS ORDERED: LEVEMIR (INSULIN DETEMIR) 1 UNITS/0.01ML As Ordered ONE ×2 (23:02→23:08)
[2019-12-02] MEDS ORDERED: PANTOPRAZOLE 40MG TAB (PROTONIX) As Ordered ONE (23:02)
[2019-12-03] MEDS ORDERED: LORazepam 2 MG TAB As Ordered ONE ×2 (03:20→08:45)
[2019-12-03] MEDS ORDERED: LORazepam 2 MG TAB ONE ×2 (03:20→08:40)
[2019-12-03] MEDS ORDERED: AUGMENTIN 875 MG TAB As Ordered ONE (08:40)
[2019-12-03] MEDS ORDERED: AUGMENTIN 875 MG TAB ONE (08:40)
[2019-12-03] MEDS ORDERED: LevoFLOXacin 750 MG TABLET ONE (08:40)
[2019-12-03] MEDS ORDERED: HumaLOG INSULIN (NovoLOG) PER UNIT ONE ×2 (08:40→12:38)
[2019-12-03] MEDS ORDERED: PANTOPRAZOLE 40MG TAB (PROTONIX) ONE (08:40)
[2019-12-03] MEDS ORDERED: HumaLOG INSULIN (NovoLOG) PER UNIT As Ordered ONE ×2 (08:45→12:38)
[2019-12-03] MEDS ORDERED: PANTOPRAZOLE 40MG TAB (PROTONIX) As Ordered ONE (08:45)
[2019-12-03] MEDS ORDERED: LevoFLOXacin 750 MG TABLET As Ordered ONE (08:45)
--- NOTE | 2020-01-05 14:12 | REP ---
PORTABLE CHEST X-RAY: SINGLE VIEW HISTORY: Intubated patient. COMPARISON: 12/01/19 Report was delayed due to network access issues related to a malware attack on the facility. FINDINGS: Endotracheal tube has been withdrawn in the interval since yesterday's radiograph. The lungs are symmetrically aerated and free of infiltrate. The pleural angles are sharp. The cardiomediastinal silhouette is unremarkable. Pulmonary vasculature is not increased. No bony abnormality is seen. IMPRESSION: No acute disease. MTDD
[2020-01-10 10:45] LABS: HEMATOCRIT 35.2 % (36.0-47.0); HEMOGLOBIN 11.9 g/dl (12.0-15.5); MEAN CORPUSCULAR HEMOGLOBIN 29.2 pg (27.0-33.0); MEAN CORPUSCULAR HGB CONC 33.8 g/dl (32.0-36.5); MEAN CORPUSCULAR VOLUME 86.3 fl (80.0-96.0); PLATELET COUNT, AUTOMATED 149 10^3/uL (150-450); RED BLOOD COUNT 4.08 10^6/uL (4.00-5.40); WHITE BLOOD COUNT 7.4 10^3/uL (4.0-10.0)
[2020-01-16 10:50] LABS: BLOOD UREA NITROGEN 10 MG/DL (7-18); CALCIUM LEVEL 8.6 MG/DL (8.5-10.1); CARBON DIOXIDE LEVEL 27 mmol/L (20-29); CHLORIDE LEVEL 104 MEQ/L (98-107); CREATININE FOR GFR 0.79 MG/DL (0.55-1.30); GLOMERULAR FILTRATION RATE > 60.0 (>58); GLUCOSE, FASTING 170 MG/DL (70-100); POTASSIUM SERUM 3.4 MEQ/L (3.5-5.1); SODIUM LEVEL 140 MEQ/L (136-145)
== END 2019-12-03 09:50 | disposition home or self-care (01) | DRG 420 ==
LOC: M ED 16:29 → M ED INP 19:26 → ENRESERV 22:17 → M ICU 22:58
PROVIDERS: ADMIT Internal Medicine Pulmonary Disease; ATTEND Internal Medicine Pulmonary Disease
PROC: 5A1945Z Respiratory Ventilation, 24-96 Consecutive Hours (ICD-10-PCS; principal; 2019-11-28)
PROC: 02HV33Z Insertion of Infusion Device into Superior Vena Cava, Percutaneous Approach (ICD-10-PCS; 2019-11-28)
DX: E10.10 Type 1 diabetes mellitus with ketoacidosis without coma (principal); J96.90 Respiratory failure, unspecified, unspecified whether with hypoxia or hypercapnia; J69.0 Pneumonitis due to inhalation of food and vomit; G93.41 Metabolic encephalopathy; E87.2 Acidosis; E87.1 Hypo-osmolality and hyponatremia; E78.5 Hyperlipidemia, unspecified; F41.9 Anxiety disorder, unspecified

== ENCOUNTER → 2020-03-11 | Outpatient (REF) | payer OTHER ==
[~2020-03-11] MED LIST changes: +ADME100I SC; +COMMENTS; +TRAZ1TAB14 PO; +VENL150C43 PO
[2020-03-11 19:05] LABS: HEPATITIS B SURFACE ANTIBODY POSITIVE (POSITIVE); HIV 1&2 SCREEN CENTAUR NEGATIVE (NEGATIVE)
[2020-03-16 17:07] LABS: HEPATITIS A IgG TOTAL Positive (Negative); HEPATITIS B CORE ANTIBODY IGG Negative (Negative); HEPATITIS C QUANTITATION 4425680 IU/mL (.); HEPATITIS C VIRUS GENOTYPE 3 (.)
== END ==
LOC: M SFHCPLAZ 12:24
PROVIDERS: ATTEND Internal Medicine Infectious Disease
DX: B19.20 Unspecified viral hepatitis C without hepatic coma (principal)

== ENCOUNTER → 2020-06-03 | Outpatient (REF) | payer OTHER ==
[2020-06-03 16:24] LABS: ALBUMIN 3.5 GM/DL (3.2-5.2); ALT/SGPT 23 U/L (12-78); BILIRUBIN,DIRECT < 0.1 MG/DL (0.0-0.2); BILIRUBIN,TOTAL 0.2 MG/DL (0.2-1.0); TOTAL PROTEIN 6.5 GM/DL (6.4-8.2)
[2020-06-05 23:07] LABS: HEPATITIS C QUANTITATION HCV Not Detected IU/mL (.)
== END ==
LOC: M SFHCPLAZ 12:22
PROVIDERS: ATTEND Internal Medicine Infectious Disease
DX: B18.2 Chronic viral hepatitis C (principal)